=== PATIENT | female | born 1975 | race Caucasian/White ===

== ENCOUNTER 2020-10-06 18:35 | Emergency (ER) | payer MEDICAID, OTHER ==
[2020-10-06 19:00] VITALS: BP 131/81; PULSE 72
--- NOTE | 2020-10-06 19:24 | EDM.PDOC ---
ED HPI GENERAL MEDICAL PROBLEM - General Chief Complaint: Upper Extremity Injury/Pain Stated Complaint: BUMP ON HEAD TENDER TO TOUCH Time Seen by Provider: 10/06/20 19:14 Source of Information: Reports: Patient, Family, RN Notes Reviewed History Limitations: Reports: No Limitations - History of Present Illness INITIAL COMMENTS - FREE TEXT/NARRATIVE: 44-year-old female presents emergency department today with a lump on the back of her head, she states is been there for about a week it is tender to the touch she denies any trauma no recent infection no other complaints Head Pain Score (Numeric/FACES): 6 - Related Data Allergies Allergy/AdvReac Type Severity Reaction Status Date / Time No Known Allergies Allergy Verified 10/06/20 18:59 Home Meds: Home Meds NK [No Known Home Meds] 04/18/14 [History] Past Medical History HEENT History: Reports: Sinusitis [employer]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: Neurological History: Reports: Migraines - Infectious Disease History Infectious Disease History: Reports: Chicken Pox, Shingles Social & Family History - Tobacco Use Tobacco Use Status *Q: Never Tobacco User - Alcohol Use Days Per Week of Alcohol Use: 7 Number of Drinks Per Day: 2 Total Drinks Per Week: 14 - Recreational Drug Use Recreational Drug Use: No Review of Systems - Review of Systems Review Of Systems: See Below Constitutional: Reports: No Symptoms Skin: Reports: Lumps ED EXAM, GENERAL - Physical Exam Exam: See Below Free Text/Narrative:: Examination of the scalp and on appreciate any erythema there is a palpable lump about the size of a nickel it is tender to the touch it is not significantly movable consistent with a lymph node Exam Limited By: No Limitations General Appearance: Alert, WD/WN, No Apparent Distress Course - Vital Signs Last Recorded V/S: Last Vital Signs Temp 98.9 F 10/06/20 19:01 Pulse 72 10/06/20 19:01 Resp 16 10/06/20 19:01 BP 131/81 10/06/20 19:01 Pulse Ox 100 10/06/20 19:01 Departure - Departure Time of Disposition: 19:23 Disposition: Home, Self-Care 01 Condition: Fair Clinical Impression: Lymph node enlargement - Discharge Information Instructions: Lymphadenopathy Referrals: PCP,None [Primary Care Provider] - Additional Instructions: Recommend follow-up primary care in 7 to 10 days if the lump is still present for further evaluation which may include blood work and/or biopsy Sepsis Event Note (ED) - Evaluation Sepsis Screening Result: No Definite Risk - Focused Exam Vital Signs: Vital Signs Temp Pulse Resp BP Pulse Ox 10/06/20 19:01 98.9 F 72 16 131/81 100 10/06/20 18:58 98.9 F 72 16 131/81 100 - Assessment/Plan Plan: Assessment Acuity = acute Site and laterality = probable lymph node enlargement Etiology = unknown Manifestations = anxiety Location of injury = Home Lab values = none Plan Recommend watchful waiting at this time follow-up primary care in the next week or so if still present for further evaluation This note was dictated using [employer] voice recognition software please call with any questions on syntax or grammar.
== END 2020-10-06 19:28 | disposition home or self-care (01) ==
LOC: JP.ED 18:35
DX: R59.0 Localized enlarged lymph nodes (principal)
CPT/HCPCS: 99283